=== PATIENT | female | born 1930 | race Caucasian/White ===

== ENCOUNTER 2016-02-15 17:28 | Emergency (ER) | payer MEDICARE, OTHER ==
[2016-02-15] MEDS ORDERED: OPTIRAY 350 100 ML VIAL HMH IV ONE (17:29)
== END 2016-02-15 22:53 | disposition home or self-care (01) ==
LOC: ER 17:28
CPT/HCPCS: 36415 ×2; 70491 ×2; 80053 ×2; 85025 ×2; 99284; Q9967